=== PATIENT | female | born 1990 | race Caucasian/White ===

== ENCOUNTER 2016-12-07 19:05 | Emergency (ER) | payer BC, OTHER ==
[~2016-12-07] VITALS: Ht 157.5 cm; Wt 49.0 kg
[~2016-12-07 19:05] MED LIST: HYDR-5688 PO
[2016-12-07 19:08] VITALS: TEMP 37.1; Ht 157.5 cm; Wt 49.0 kg
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
--- NOTE | 2016-12-07 19:46 | DIAGNOSTIC IMAGING REPORT ---
LEFT TOE(S) MIN 2 VIEWS CLINICAL HISTORY: left fifth toe injury trauma. Pain. COMPARISON: None. DISCUSSION: Blank fracture proximal phalanx left fifth toe. No evidence of dislocation. Moderate soft tissue edema IMPRESSION: Oblique fracture proximal phalanx fifth toe Electronically signed by: Bola Wilder M.D. 12/07/2016 7:45 PM Dictated Date/Time: 12/07/2016 7:45 PM
[2016-12-07] MEDS ORDERED: TRAMADOL HCL 50 MG HOME PACK PO ONE (20:00)
[2016-12-07] MEDS ORDERED: TRAM-453 PO (20:01)
[2016-12-07 20:11] VITALS: BP 117/80; PULSE 71; O2SAT 98
[2017-03-14] MEDS ORDERED: METR500T PO (14:17)
== END 2016-12-07 20:12 | disposition home or self-care (01) ==
LOC: C.EDB 19:06 → C.EDD 20:12
DX: S92.511A Displaced fracture of proximal phalanx of right lesser toe(s), initial encounter for closed fracture (principal); W22.09XA Striking against other stationary object, initial encounter; F17.210 Nicotine dependence, cigarettes, uncomplicated; Z87.440 Personal history of urinary (tract) infections

== ENCOUNTER 2016-12-09 18:32 | Emergency (ER) | payer BC, OTHER ==
[~2016-12-09] VITALS: Ht 157.5 cm; Wt 49.9 kg
[~2016-12-09 18:32] MED LIST changes: +TRAM-453 PO
[2016-12-09 18:49] VITALS: TEMP 37.2; Ht 157.5 cm; Wt 49.9 kg
--- NOTE | 2016-12-09 19:35 | DIAGNOSTIC IMAGING REPORT ---
LEFT FOOT MIN 3 VIEWS ROUTINE CLINICAL HISTORY: fall pain COMPARISON: 12/07/2016 DISCUSSION: Oblique fracture proximal phalanx fifth toe. No change in appearance or slight lateral angulation compared to the prior study. No new or interval findings. There is no evidence for soft tissue swelling. IMPRESSION: Oblique fracture proximal phalanx fifth toe unchanged from the prior exam. Electronically signed by: Bola Wilder M.D. 12/09/2016 7:33 PM Dictated Date/Time: 12/09/2016 7:32 PM
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
[2016-12-09 20:24] VITALS: BP 108/72; PULSE 76; O2SAT 97
[2017-03-14] MEDS ORDERED: METR500T PO (14:17)
== END 2016-12-09 20:25 | disposition home or self-care (01) ==
LOC: C.EDB 18:32 → C.EDD 20:25
DX: S93.602A Unspecified sprain of left foot, initial encounter (principal); W22.8XXA Striking against or struck by other objects, initial encounter; F17.200 Nicotine dependence, unspecified, uncomplicated

== ENCOUNTER 2016-12-31 17:23 | Emergency (ER) | payer BC, OTHER ==
[~2016-12-31] VITALS: Ht 157.5 cm; Wt 52.2 kg
[2016-12-31 18:01] VITALS: TEMP 37.2; Ht 157.5 cm; Wt 52.2 kg
[2016-12-31] MEDS ORDERED: CLIN300C2 PO (18:33)
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
[2016-12-31 18:49] VITALS: BP 114/74; PULSE 71; O2SAT 97
[2017-03-14] MEDS ORDERED: METR500T PO (14:17)
== END 2016-12-31 18:54 | disposition home or self-care (01) ==
LOC: C.EDB 17:24 → C.EDD 18:54
DX: K02.9 Dental caries, unspecified (principal); F17.210 Nicotine dependence, cigarettes, uncomplicated; Z87.440 Personal history of urinary (tract) infections

== ENCOUNTER 2017-02-11 17:32 | Emergency (ER) | payer BC, OTHER ==
[~2017-02-11] VITALS: Ht 157.5 cm; Wt 50.4 kg
[2017-02-11 17:45] VITALS: TEMP 37.1; Ht 157.5 cm; Wt 50.4 kg
[2017-02-11] MEDS ORDERED: SODIUM CHLORIDE 0.9% 1000ML 1,000 ML IV STA (18:11)
[2017-02-11 19:07] LABS: BASO % 0.2 %; BASO ABS # 0.02 K/uL (0-0.2); COMPLETE YES; EOS % 0.2 %; HEMATOCRIT 39.2 % (37-47); IG% 0.3 %; LYMPH % 23.1 %; LYMPH ABS # 2.37 K/uL (1.2-3.4); MEAN CELL VOLUME 88.9 fL (80-100); MEAN CORPUSCULAR HEMOGLOBIN 29.7 pg (25-34); MEAN CORPUSCULAR HGB CONC 33.4 g/dl (32-36); MEAN PLATELET VOLUME 10.4 fL (7.4-10.4); MONO % 6.3 %; NEUT % 69.9 %; PLATELET COUNT 203 K/uL (130-400); RED BLOOD COUNT 4.41 M/uL (4.2-5.4); WHITE BLOOD COUNT 10.24 K/uL (4.8-10.8)
[2017-02-11 19:37] LABS: ALT/SGPT 22 U/L (12-78); AST/SGOT 14 U/L (15-37); BLOOD UREA NITROGEN 5 mg/dl (7-18); BUN/CREATININE RATIO 12.9 (10-20); CARBON DIOXIDE 26 mmol/L (21-32); CHLORIDE 103 mmol/L (98-107); CREATININE 0.41 mg/dl (0.60-1.20); GLUCOSE 83 mg/dl (70-99); POTASSIUM 3.4 mmol/L (3.5-5.1); SODIUM 137 mmol/L (136-145)
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
[2017-02-11 19:39] LABS: ALB/GLOB RATIO 1.1 (0.9-2); ALKALINE PHOSPHATASE 65 U/L (45-117)
--- NOTE | 2017-02-11 20:43 | DIAGNOSTIC IMAGING REPORT ---
ULTRASOUND KIDNEYS AND BLADDER CLINICAL HISTORY: Left flank pain.. COMPARISON STUDY: Abdominal CT dated 08/09/2016. TECHNIQUE: Real-time, grayscale, and color flow sonography of the kidneys and bladder is performed. Images are reviewed in the transverse and longitudinal planes. FINDINGS: Kidneys: The kidneys are normal in size and echotexture. The right kidney measures 11.1 cm in length and the left kidney measures 11.2 cm in length. There is mild fullness of the left renal collecting system. No hydronephrosis is seen. No shadowing renal calculi are identified. There is no sonographic evidence of contour deforming renal mass lesion. No perinephric fluid is identified. Bladder: The partially decompressed bladder is grossly normal in appearance. Only the right ureteral jet was seen. IMPRESSION: 1. The kidneys are normal in size and without hydronephrosis. 2. The partially decompressed bladder is grossly normal in appearance. 3. Only a right ureteral jet was seen. Electronically signed by: Beny Garcia M.D. 02/11/2017 8:41 PM Dictated Date/Time: 02/11/2017 8:39 PM
--- NOTE | 2017-02-11 20:47 | DIAGNOSTIC IMAGING REPORT ---
ULTRASOUND OF THE PELVIS CLINICAL HISTORY: Left pelvic pain. . COMPARISON STUDY: Pelvic CT dated 08/17/2016. TECHNIQUE: Real-time, grayscale, and color flow sonography of the pelvis is performed transabdominally. Images are reviewed in the transverse and longitudinal planes. The patient declined the endovaginal examination. FINDINGS: Uterus: The gravid uterus is normal in size and echotexture, measuring 9.0 cm in length Gestation: There is a single live intrauterine gestation with estimated heart rate of 136 bpm. A yolk sac is identified. The crown-rump length measures 0.96 cm, corresponding to an estimated age of 7 weeks 0 days. There is trace of chronic hemorrhage identified. This measures up to 2.7 cm. Ovaries: The ovaries are normal in size and morphology. The right ovary measures 2.6 x 2.2 x 2.2 cm and the left ovary measures 2.1 x 1.6 x 1.8 cm. Small follicles are identified. A corpus the team is suspected on the right. Normal Doppler waveforms are shown within both ovaries. Pelvis: There is no free fluid in the cul-de-sac. No concerning adnexal lesion is seen. IMPRESSION: 1. No acute sonographic abnormality is identified in the pelvis. 2. There is a single live uterine gestation with an estimated age of 7 weeks 0 days by crown-rump length measurement. 3. Trace subchorionic hemorrhage. 4. The ovaries are normal in appearance. 5. The patient declined the endovaginal examination. Electronically signed by: Beny Garcia M.D. 02/11/2017 8:44 PM Dictated Date/Time: 02/11/2017 8:41 PM
[2017-02-11 21:04] LABS: URINE APPEARANCE CLEAR (CLEAR); URINE BILIRUBIN NEG (NEG); URINE COLOR YELLOW; URINE NITRITE NEG (NEG); URINE PH 5.5 (4.5-7.5); URINE SPECIFIC GRAVITY 1.011 (1.000-1.030); UROBILINOGEN NEG (NEG); ZZUR CULT IF INDIC CLEAN CATCH NO
[2017-02-11 21:07] LABS: MANUAL MICROSCOPIC REQUIRED? NO; REVIEW REQ? NO
[2017-02-11 21:38] VITALS: BP 116/75; PULSE 85; O2SAT 99
[2017-03-14] MEDS ORDERED: METR500T PO (14:17)
== END 2017-02-11 21:39 | disposition home or self-care (01) ==
LOC: C.EDB 17:33
DX: O26.851 Spotting complicating pregnancy, first trimester (principal); O26.891 Other specified pregnancy related conditions, first trimester; M54.42 Lumbago with sciatica, left side; Z3A.01 Less than 8 weeks gestation of pregnancy; O99.331 Smoking (tobacco) complicating pregnancy, first trimester; F17.210 Nicotine dependence, cigarettes, uncomplicated

== ENCOUNTER 2017-03-09 17:49 | Emergency (ER) | payer BC, OTHER ==
[~2017-03-09] VITALS: Ht 157.5 cm; Wt 49.7 kg
[2017-03-09 18:06] VITALS: TEMP 36.8; Ht 157.5 cm; Wt 49.7 kg
[2017-03-09] MEDS ORDERED: SODIUM CHLORIDE 0.9% 1000ML 1,000 ML IV ONE (18:20)
[2017-03-09] MEDS ORDERED: SODIUM CHLORIDE 0.9% 1000ML 1,000 ML IV STA (18:20)
[2017-03-09 18:44] LABS: BASO % 0.2 %; BASO ABS # 0.02 K/uL (0-0.2); COMPLETE YES; EOS % 0.7 %; HEMATOCRIT 38.2 % (37-47); IG% 0.3 %; LYMPH % 19.9 %; LYMPH ABS # 2.25 K/uL (1.2-3.4); MEAN CELL VOLUME 89.9 fL (80-100); MEAN CORPUSCULAR HEMOGLOBIN 30.1 pg (25-34); MEAN CORPUSCULAR HGB CONC 33.5 g/dl (32-36); MEAN PLATELET VOLUME 10.6 fL (7.4-10.4); MONO % 5.8 %; NEUT % 73.1 %; PLATELET COUNT 227 K/uL (130-400); RED BLOOD COUNT 4.25 M/uL (4.2-5.4); WHITE BLOOD COUNT 11.29 K/uL (4.8-10.8)
[2017-03-09 18:59] LABS: BLOOD UREA NITROGEN 8 mg/dl (7-18); BUN/CREATININE RATIO 19.4 (10-20); CALCIUM 8.9 mg/dl (8.5-10.1); CARBON DIOXIDE 28 mmol/L (21-32); CHLORIDE 105 mmol/L (98-107); CREATININE 0.43 mg/dl (0.60-1.20); GLUCOSE 84 mg/dl (70-99); POTASSIUM 3.4 mmol/L (3.5-5.1); SODIUM 140 mmol/L (136-145)
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
--- NOTE | 2017-03-09 19:51 | DIAGNOSTIC IMAGING REPORT ---
Limited ultrasound LIMITED (US) CLINICAL HISTORY: eval for miscarriage, retained products TECHNIQUE: Transabdominal ultrasound COMPARISON STUDY: 02/11/2017 FINDINGS: Findings suggesting probable demise. cardiac motion cannot be identified. Estimated gestational age is 8 weeks 2 days by CRL. Endometrium is thickened at 3.9 cm and is heterogeneous. Possibility of intrauterine hematoma is considered combined with retained products. IMPRESSION: 1. Findings consistent with demise. 2. heart tones could not be identified. 3. Thickened heterogeneous endometrium raising the possibility of blood products, with retained products of conception present. Electronically signed by: Bola Wilder M.D. 03/09/2017 7:50 PM Dictated Date/Time: 03/09/2017 7:47 PM
[2017-03-09 21:26] VITALS: BP 112/79; PULSE 85; O2SAT 99
[2017-03-14] MEDS ORDERED: METR500T PO (14:17)
== END 2017-03-09 21:28 | disposition home or self-care (01) ==
LOC: C.EDB 17:52 → C.EDA 21:28
DX: O20.0 Threatened abortion (principal); Z3A.08 8 weeks gestation of pregnancy; F17.210 Nicotine dependence, cigarettes, uncomplicated; O99.331 Smoking (tobacco) complicating pregnancy, first trimester

== ENCOUNTER → 2017-03-12 | Outpatient (CLI) | payer BC, OTHER ==
[~2017-03-12] MED LIST changes: -HYDR-5688 PO; +METR500T PO; -TRAM-453 PO
[2017-03-12 15:57] LABS: BASO % 0.2 %; BASO ABS # 0.02 K/uL (0-0.2); COMPLETE YES; EOS % 0.8 %; HEMATOCRIT 35.4 % (37-47); IG% 0.3 %; LYMPH % 20.3 %; LYMPH ABS # 1.98 K/uL (1.2-3.4); MEAN CELL VOLUME 88.9 fL (80-100); MEAN CORPUSCULAR HEMOGLOBIN 29.4 pg (25-34); MEAN CORPUSCULAR HGB CONC 33.1 g/dl (32-36); MONO % 6.2 %; NEUT % 72.2 %; PLATELET COUNT 239 K/uL (130-400); RED BLOOD COUNT 3.98 M/uL (4.2-5.4); WHITE BLOOD COUNT 9.73 K/uL (4.8-10.8)
== END | disposition home or self-care (01) ==
LOC: C.LAB1850 14:33
PROVIDERS: ATTEND Obstetrics & Gynecology
DX: O02.1 Missed abortion (principal)

== ENCOUNTER 2017-03-14 10:36 | Day surgery (SDC) | payer BC, OTHER ==
[~2017-03-14] VITALS: Ht 157.5 cm; Wt 46.0 kg
[~2017-03-14 10:36] MED LIST changes: +DOXYCYCLINE HYCLATE 100 MG CAP PO SCH; +LACTATED RINGER'S 1000ML 1,000 ML IV SCH; -METR500T PO
[2017-03-14 10:57] VITALS: BP 110/68; PULSE 81; TEMP 37; O2SAT 100; Ht 157.5 cm; Wt 46.0 kg
--- NOTE | 2017-03-14 11:24 | History & Physical Bridge Note ---
H&P Re-Evaluation Bridge Note: I have examined the patient, reviewed the History & Physical and in the interval since the performance of the History & Physical I have noted the following changes of clinical significance: No changes noted
[2017-03-14] MEDS ORDERED: SODIUM CHLORIDE 0.9% 1000ML 1,000 ML IV SCH (11:25)
--- NOTE | 2017-03-14 11:29 | Discharge Instructions ---
Discharge Instructions Date of Service March 14, 2017. Visit Reason for Visit: Missed Discharge Discharge Diagnosis / Problem: Missed Discharge Goals Goal(s): Specific goals Activity Recommendations Activity Limitations: per Instructions/Follow-up section Anesthesia . Post Anesthesia Instructions: If you have had General Anesthesia or IV Sedation: * Do not drive today. * Resume driving when surgeon permits. * Do not make important decisions or sign legal documents today. * Call surgeon for: 1. Temperature elevations greater than 101 degrees F. 2. Uncontrollable pain. 3. Excessive bleeding. 4. Persistent nausea and vomiting. 5. Medication intolerance (nausea, vomiting or rash). * For nausea and vomiting use only clear liquids such as: tea, soda, bouillon until nausea subsides, then gradually increase diet as tolerated. * If you have any concerns or questions, call your surgeon's office. If physician is unavailable and it is an emergency, call 911 or go to the nearest emergency room. . Instructions / Follow-Up Instructions / Follow-Up ACTIVITY RECOMMENDATIONS: * Avoid tampons, douching, hot tubs, pools, and intercourse until bleeding has stopped. * May shower as usual. * No strenuous activity for 24-48 hours. After 24-48 hours, you may do anything you feel like doing (driving and sports are okay). SPECIAL CARE INSTRUCTIONS: Special Diet: * Mild nausea may occur in the immediate post-operative period. * Take clear liquids such as tea, cola or bouillon until all nausea has subsided; you may then resume your normal diet. Special Care: * Light bleeding and vaginal spotting can last from a few days to 3-4 weeks. Call your doctor if bleeding becomes heavier than the heaviest part of your period. * Check your temperature twice a day for one week. If it goes above 100.4 degrees Fahrenheit (38.0 Celsius), notify your doctor. * Call your doctor's office for an appointment for 6 weeks after your surgery. FOLLOW-UP VISIT: Call your doctor's office for an appointment for 6 weeks after your surgery. Diet Recommendations Recommended Home Diet: resume previous diet Pending Studies Studies pending at discharge: no Medical Emergencies . Who to Call and When: Medical Emergencies: If at any time you feel your situation is an emergency, please call 911 immediately. . Non-Emergent Contact Non-Emergency issues call your: Primary Care Provider . . "Provider Documentation" section prepared by Kimberly Santiago. .
[2017-03-14] MEDS ORDERED: ONDANSETRON INJ 2 MG/ML 2 ML VIAL IV PRN ×2 (11:30→13:30)
[2017-03-14] MEDS ORDERED: IBUPROFEN 600 MG TAB PO PRN (11:30)
[2017-03-14] MEDS ORDERED: OXYCODONE/ACETAMINOPHEN 5-325 TAB PO PRN ×2 (11:30)
[2017-03-14] MEDS ORDERED: PROMETHAZINE HCL INJ 25 MG in SODIUM CHLORIDE 0.9% 50ML 50 ML IV PRN (11:30)
[2017-03-14] MEDS ORDERED: KETOROLAC TROMETHAMINE 30 MG/ML VIAL IV. PRN (11:30)
[2017-03-14] MEDS ORDERED: DEXAMETHASONE SOD INJ 4 MG/ML VIAL ONE ×2 (12:45→13:58)
[2017-03-14] MEDS ORDERED: ONDANSETRON INJ 2 MG/ML 2 ML VIAL ONE (12:45)
[2017-03-14] MEDS ORDERED: LIDOCAINE HCL 2% 2 ML VIAL (20MG/ML) ONE (12:45)
[2017-03-14] MEDS ORDERED: FENTANYL CITRATE INJ 50 MCG/1 ML 2 ML VIAL ONE (12:46)
[2017-03-14] MEDS ORDERED: PROPOFOL IV EMULSION 10 MG/ML 20 ML VIAL IV ONE ×2 (12:46→13:58)
[2017-03-14] MEDS ORDERED: MIDAZOLAM HCL 1 MG/ML 2ML VIAL ONE (12:46)
[2017-03-14] MEDS ORDERED: EpHEDrine SULFATE INJ 50 MG/ML AMP IV PRN (13:30)
[2017-03-14] MEDS ORDERED: ATROPINE SULFATE 0.1 MG/ML 5ML SYR IV PRN (13:30)
[2017-03-14] MEDS ORDERED: METHYLERGONOVINE MALEATE 0.2 MG/ML AMP ONE (14:02)
--- NOTE | 2017-03-14 14:16 | [facility] Post Operative Brief Note ---
Immediate Operative Summary Operative Date March 14, 2017. Pre-Operative Diagnosis Missed Post-Operative Diagnosis Same Procedure(s) Performed D & E Surgeon Jack Cherry Cutter Surgeon(s) None Estimated Blood Loss 400 Findings Significant necrotic-appearing POC Specimens POC Complication(s) None Disposition Recovery Room / PACU
[2017-03-14] MEDS ORDERED: METR500T PO (14:17)
[2017-03-14] MEDS: FENTANYL CITRATE INJ 50 MCG/1 ML 2 ML VIAL IV PRN ×4 (14:24→14:35)
--- NOTE | 2017-03-14 14:53 | Anesthesiology Progress Note ---
Anesthesia Post Op Note Date & Time March 14, 2017 at 14:54 Vital Signs Pain Intensity: 3 Vital Signs Past 12 Hours Date Time Temp Pulse Resp B/P Pulse Ox O2 Delivery O2 Flow Rate FiO2 03/14/17 14:41 91/69 03/14/17 14:38 91 16 100 03/14/17 14:38 91 16 03/14/17 14:37 95/71 03/14/17 14:33 96 17 100 03/14/17 14:33 96 17 03/14/17 14:32 92/71 03/14/17 14:28 91 10 100 03/14/17 14:28 92 10 03/14/17 14:26 93/65 03/14/17 14:23 93 10 03/14/17 14:23 92 10 100 03/14/17 14:21 95/74 03/14/17 14:19 111/69 03/14/17 14:18 102 99 03/14/17 14:18 36.0 101 14 95/74 100 Mask 10 03/14/17 14:18 102 03/14/17 10:57 37 81 16 110/68 100 Room Air Notes Mental Status: alert / awake / arousable, participated in evaluation Pt Amnestic to Procedure: Yes Nausea / Vomiting: adequately controlled Pain: adequately controlled Airway Patency, RR, SpO2: stable & adequate BP & HR: stable & adequate Hydration State: stable & adequate Anesthetic Complications: no major complications apparent
[2017-03-14 15:03] VITALS: BP 91/57; PULSE 76; TEMP 36.5; O2SAT 99
[2017-03-14 15:40] VITALS: BP 110/70; PULSE 78; O2SAT 98
--- NOTE | 2017-03-14 16:00 | OPERATIVE REPORT ---
DATE OF OPERATION: 03/14/2017 PREOPERATIVE DIAGNOSIS: Missed . POSTOPERATIVE DIAGNOSIS: Same. PROCEDURE: D\T\E. SURGEON: Dr. Santiago. SPONGE PACKER: None. ESTIMATED BLOOD LOSS: 400 mL. FINDINGS: Significant products of conception with what appears to be necrosis that were retrieved. Uterus sounded to 12 cm at the beginning of procedure and 7-8 at the end. SPECIMENS: Products of conception. COMPLICATIONS: None. DISPOSITION: Stable to recovery room. DESCRIPTION OF PROCEDURE: Pau is a 26-year-old, found to have an 8 week 3 day pole with no heart tones in an ER visit the weekend prior to surgery. She was experiencing no cramping and bleeding. At that time, she came to see me in the office on Saturday to set up a dilation and evacuation to be done today, , the . She presented as planned for surgery and again had no further cramping or bleeding since Saturday prior. She was placed on the table in the dorsal lithotomy position with candy-cane stirrups, prepped and draped in standard sterile fashion and a hard time-out was taken prior to proceeding. The bladder was emptied of urine via straight catheterization. [place] and weighted specula were introduced. The anterior lip of the cervix was grasped with a single-tooth tenaculum. The uterus was sounded gently to 12.5 cm. The cervix was serially dilated to allow passage of an 8-mm curette, which was then introduced to the fundus. The suction hose was applied and suction was generated. Through 3 passes, significant material was retrieved. Following the 3 passes, a gentle sharp curettage was undertaken, which revealed a significant amount of residual tissue in the uterus, which appeared necrotic in nature and had some odor to it. Once this had been disrupted using a sharp curette, the suction curette was reintroduced and again significant products of conception were retrieved. Once this was felt to be complete, a sharp curettage was again carried out and at this point, the uterus was sounding to about 8 cm and had good cry on all 4 mercedes. Bleeding was minimal, but given the necrotic appearance of the tissue, I feel that this patient may be at higher risk for a delayed hemorrhage after this procedure due to the potential necrosis and possible early infection of tissue in the uterus. For this reason, I am asking the anesthesiologist to administer IM Methergine in the operating room and I will give the patient antibiotics to take once she is at home as well. I attest to the content of the Intraoperative Record and any orders documented therein. Any exceptions are noted below. JERAMIED
[2017-03-14 16:10] VITALS: BP 103/65; PULSE 78; TEMP 37; O2SAT 99
== END 2017-03-14 16:40 | disposition home or self-care (01) ==
LOC: C.ACU 10:36
PROVIDERS: ATTEND Obstetrics & Gynecology
DX: O02.1 Missed abortion (principal); F17.200 Nicotine dependence, unspecified, uncomplicated; Z82.49 Family history of ischemic heart disease and other diseases of the circulatory system; Z80.49 Family history of malignant neoplasm of other genital organs

== ENCOUNTER 2017-07-28 18:46 | Emergency (ER) | payer BC, OTHER ==
[~2017-07-28] VITALS: Ht 157.5 cm; Wt 48.9 kg
[2017-07-28 19:03] VITALS: Ht 157.5 cm; Wt 48.9 kg
--- NOTE | 2017-07-28 20:20 | DIAGNOSTIC IMAGING REPORT ---
HEAD WITHOUT CONTRAST (CT) CLINICAL HISTORY: 27 years-old Female presenting with r facial pain around r eye . TECHNIQUE: Multidetector CT imaging of the head was performed without the use of intravenous contrast. IV contrast: None. A dose lowering technique was used consistent with the principles of ALARA (as low as reasonably achievable). COMPARISON: None. CT DOSE (mGy.cm): The estimated cumulative dose is 622.40. FINDINGS: Punch Press Setter topogram: Unremarkable. Ventricles and sulci normal in size. Brain parenchyma normal in appearance with preserved richard-white differentiation. No mass effect or midline shift. No hemorrhage or acute territorial infarct. No extra-axial fluid collection. Paranasal sinuses and mastoid air cells clear. Calvarium intact. IMPRESSION: 1. No acute intracranial pathology. Electronically signed by: Ernie Skelton M.D. 07/28/2017 8:19 PM Dictated Date/Time: 07/28/2017 8:17 PM
--- NOTE | 2017-07-28 20:24 | DIAGNOSTIC IMAGING REPORT ---
FACIAL BONES-MXILLOFAC WITHOUT CLINICAL HISTORY: 27 years-old Female presenting with r facial pain. TECHNIQUE: Multidetector CT of the face was performed without the use of intravenous contrast. IV contrast: None. A dose lowering technique was used consistent with the principles of ALARA (as low as reasonably achievable). COMPARISON: None. CT DOSE (mGy.cm): The estimated cumulative dose is 622.40 mGy.cm. FINDINGS: Warp Tying Machine Knotter topogram: Unremarkable. Paranasal sinuses and mastoid air cells clear. No acute osseous fracture. No CT evidence of soft tissue swelling or inflammation in the right periorbital region. The orbits are normal bilaterally. Remaining soft tissues of the face also normal. No lymphadenopathy in the upper cervical region. Upper cervical spine normal. IMPRESSION: Normal CT of the face. Electronically signed by: Ernie Skelton M.D. 07/28/2017 8:22 PM Dictated Date/Time: 07/28/2017 8:19 PM
[2017-07-28] MEDS ORDERED: ACETAMINOPHEN 500 MG TAB PO STA (20:28)
[2017-07-28 21:09] VITALS: BP 108/72; PULSE 83; TEMP 37.2; O2SAT 100
[2017-07-28] MEDS ORDERED: ONDANSETRON 4 MG TAB PO PRN (21:15)
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
== END 2017-07-28 21:10 | disposition home or self-care (01) ==
LOC: C.EDB 18:52 → C.EDC 21:10
DX: S00.83XA Contusion of other part of head, initial encounter (principal); S06.0X1A Concussion with loss of consciousness of 30 minutes or less, initial encounter; Y04.0XXA Assault by unarmed brawl or fight, initial encounter; Z87.440 Personal history of urinary (tract) infections; Z80.9 Family history of malignant neoplasm, unspecified; Z82.49 Family history of ischemic heart disease and other diseases of the circulatory system; Z83.3 Family history of diabetes mellitus; F17.210 Nicotine dependence, cigarettes, uncomplicated

== ENCOUNTER 2018-05-15 17:36 | Emergency (ER) | payer OTHER ==
[~2018-05-15] VITALS: Ht 157.5 cm; Wt 47.0 kg
[2018-05-15 17:46] VITALS: TEMP 37.1; Ht 157.5 cm; Wt 47.0 kg
--- NOTE | 2018-05-15 18:58 | DIAGNOSTIC IMAGING REPORT ---
CHEST ONE VIEW PORTABLE CLINICAL HISTORY: Shortness of breath COMPARISON STUDY: 10/24/2013 FINDINGS: The cardiac and mediastinal contours are normal. There is no evidence of focal pulmonary consolidation. There is no evidence of failure. No pleural effusions are visualized.[ IMPRESSION: No active disease in the chest. Electronically signed by: Shaq Lemos M.D. 05/15/2018 6:57 PM Dictated Date/Time: 05/15/2018 6:57 PM
--- NOTE | 2018-05-15 18:58 | DIAGNOSTIC IMAGING REPORT ---
CT HEAD WITHOUT CONTRAST (CT) CLINICAL HISTORY: syncope COMPARISON STUDY: July 28, 2017 TECHNIQUE: Axial CT of the brain is performed from the vertex to the skull base. IV contrast was not administered for this examination. A dose lowering technique was utilized adhering to the principles of ALARA. CT DOSE: 537.48 mGy.cm FINDINGS: No intra or extra-axial mass lesions are visualized. There is no CT evidence of acute cortical infarction. There is no evidence of midline shift. There is no acute hemorrhage. No calvarial fractures are visualized. There is no evidence of pathologic ventricular dilatation. There is no evidence of acute sinusitis IMPRESSION: Normal noncontrast head CT. Electronically signed by: Shaq Lemos M.D. 05/15/2018 6:56 PM Dictated Date/Time: 05/15/2018 6:55 PM
[2018-05-15] MEDS ORDERED: SODIUM CHLORIDE 0.9% 1000ML 1,000 ML IV STA (19:12)
[2018-05-15 19:17] LABS: BASO % 0.3 %; BASO ABS # 0.03 K/uL (0-0.2); EOS % 1.5 %; EOS ABS # 0.15 K/uL (0-0.5); HEMATOCRIT 42.6 % (37-47); HEMOGLOBIN 13.8 g/dL (12.0-16.0); IG# 0.02 K/uL (0.00-0.02); LYMPH % 31.4 %; LYMPH ABS # 3.16 K/uL (1.2-3.4); MEAN CELL VOLUME 76.2 fL (80-100); MEAN CORPUSCULAR HEMOGLOBIN 24.7 pg (25-34); MEAN CORPUSCULAR HGB CONC 32.4 g/dl (32-36); MEAN PLATELET VOLUME 10.9 fL (7.4-10.4); MONO % 8.7 %; MONO ABS # 0.88 K/uL (0.11-0.59); NEUT % 57.9 %; NEUT ABS # 5.82 K/uL (1.4-6.5); PLATELET COUNT 295 K/uL (130-400); RED CELL DISTRIBUTION WIDTH CV 18.6 % (11.5-14.5); WHITE BLOOD COUNT 10.06 K/uL (4.8-10.8)
[2018-05-15 19:21] LABS: ALBUMIN 4.7 gm/dl (3.4-5.0); ALKALINE PHOSPHATASE 89 U/L (45-117); ALT/SGPT 25 U/L (12-78); AST/SGOT 16 U/L (15-37); BLOOD UREA NITROGEN 22 mg/dl (7-18); CALCIUM 9.3 mg/dl (8.5-10.1); CARBON DIOXIDE 21 mmol/L (21-32); CREATININE 0.84 mg/dl (0.60-1.20); GLUCOSE 99 mg/dl (70-99); LIPASE 206 U/L (73-393); POTASSIUM 3.2 mmol/L (3.5-5.1); SODIUM 136 mmol/L (136-145); TOTAL PROTEIN 9.4 gm/dl (6.4-8.2)
[2018-05-15] MEDS ORDERED: POTASSIUM CHLORIDE 10 MEQ TABCR PO STA (19:24)
[2018-05-15] MEDS ORDERED: PROPARACAINE HCL 0.5% OP SOLN 15 ML BTL ONE (19:39)
[2018-05-15] MEDS ORDERED: PrednisoLONE ACET 1% OP SUSP 5 ML BTL OP ONE (21:45)
[2018-05-15 22:25] VITALS: BP 109/69; PULSE 91; O2SAT 95
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
== END 2018-05-15 22:25 | disposition home or self-care (01) ==
LOC: C.EDB 17:39
DX: R55 Syncope and collapse (principal); H20.9 Unspecified iridocyclitis; E87.6 Hypokalemia; D64.9 Anemia, unspecified; Z87.440 Personal history of urinary (tract) infections; Z80.9 Family history of malignant neoplasm, unspecified; Z82.49 Family history of ischemic heart disease and other diseases of the circulatory system; Z83.3 Family history of diabetes mellitus; Z83.6 Family history of other diseases of the respiratory system; F17.210 Nicotine dependence, cigarettes, uncomplicated; Z88.0 Allergy status to penicillin